=== PATIENT | male | born 1980 ===

== ENCOUNTER 2020-06-25 12:45 | Emergency (ER) | payer BC ==
[2020-06-25 12:56] VITALS: BP 122/82
--- NOTE | 2020-06-25 13:10 | Emergency Department Report ---
Blank Doc - Documentation Documentation: 39-year-old male that presents with chest pain with sob and abdominal pain with n/v. EKG shows A-fib. Denies any HX of A-fib. This initial assessment/diagnostic orders/clinical plan/treatment(s) is/are subject to change based on patient's health status, clinical progression and re- assessment by fellow clinical providers in the ED. Further treatment and workup at subsequent clinical providers discretion. Patient/guardians urged not to elope from the ED as their condition may be serious if not clinically assessed and managed. Initial orders include: 1- Patient sent to [facility] for further evaluation and treatment 2- cardiac workup
--- NOTE | 2020-06-25 13:30 | XRay Report ---
CHEST 2 VIEWS INDICATION / CLINICAL INFORMATION: Chest Pain. FINDINGS: SUPPORT DEVICES: None. HEART / MEDIASTINUM: No significant abnormality. LUNGS / PLEURA: No significant pulmonary or pleural abnormality. No pneumothorax. ADDITIONAL FINDINGS: No significant additional findings. IMPRESSION: 1. No acute findings. Signer Name: Juan Johnson MD Signed: 06/25/2020 1:26 PM Workstation Name: [id number]
[2020-06-25 14:35] LABS: Basophils % (Auto) 0.6 % (0.0-1.8); Eosinophils # (Auto) 0.1 K/mm3 (0.0-0.4); Eosinophils % (Auto) 1.2 % (0.0-4.3); Hematocrit 50.5 % (35.5-45.6); Hemoglobin 16.8 gm/dl (11.8-15.2); Lymphocytes % (Auto) 37.5 % (13.4-35.0); Mean Corpuscular HGB Conc 33 % (32-34); Mean Corpuscular Volume 97 fl (84-94); Monocytes # (Auto) 0.5 K/mm3 (0.0-0.8); Monocytes % (Auto) 6.2 % (0.0-7.3); Platelet Count 347 K/mm3 (140-440); Red Blood Count 5.21 M/mm3 (3.65-5.03); Red Cell Distribution Width 14.2 % (13.2-15.2)
[2020-06-25 14:38] LABS: Alanine Aminotransferase 37 units/L (7-56); Albumin 5.1 g/dL (3.9-5); BUN/Creatinine Ratio 16; Blood Urea Nitrogen 21 mg/dL (9-20); Calcium 10.6 mg/dL (8.4-10.2); Hemolysis Index 31
[2020-06-25 14:47] LABS: INR 0.89 (0.87-1.13)
[2020-06-25 14:48] LABS: Partial Thromboplastin Time 34.6 Sec. (24.2-36.6)
--- NOTE | 2020-06-25 15:26 | Emergency Department Report ---
ED General Adult HPI - General Chief complaint: Arrhythmia/Palpitations Stated complaint: RAPID HEART RATE Time Seen by Provider: 06/25/20 13:08 Source: patient Mode of arrival: Ambulatory Limitations: No Limitations - History of Present Illness Initial comments: Patient is 39 years old male with no significant past medical history. Patient presented to the ER complaining of heart racing and not feeling well. Patient stated the symptoms started approximately 1 hour after he ate breakfast outside. Patient stated that he immediately thought this is most likely from the food that he ate. Upon arrival to the ER patient stated that his symptoms completely resolved now. Patient denied any vomiting however he had one episode of diarrhea and he stated that he felt much better after that. Patient denied any fever or chills. No chest pain, shortness of breath, abdominal pain or weakness. Severity scale (0 -10): 0 - Related Data Previous Rx's Medication Instructions Recorded Last Taken Type Ondansetron [Zofran Odt] 4 mg PO Q8HR PRN #14 tab.rapdis 06/25/20 Unknown Rx Allergies Allergy/AdvReac Type Severity Reaction Status Date / Time pollen extracts Allergy Unknown Verified 06/25/20 12:53 ED Review of Systems ROS: Stated complaint: RAPID HEART RATE Other details as noted in HPI Comment: All other systems reviewed and negative Constitutional: denies: chills, fever Respiratory: denies: cough, shortness of breath, SOB with exertion, SOB at rest Cardiovascular: palpitations. denies: chest pain Gastrointestinal: denies: abdominal pain, nausea, vomiting Musculoskeletal: denies: back pain Neurological: denies: headache, weakness, numbness, paresthesias, confusion, abnormal gait ED Past Medical Hx - Past Medical History Additional medical history: HEART RACING - Surgical History Past Surgical History?: No - Medications Home Medications: Home Medications Medication Instructions Recorded Confirmed Last Taken Type Ondansetron [Zofran Odt] 4 mg PO Q8HR PRN #14 tab.rapdis 06/25/20 Unknown Rx ED Physical Exam - General Limitations: No Limitations General appearance: alert, in no apparent distress - Head Head exam: Present: atraumatic, normocephalic, normal inspection - Eye Eye exam: Present: normal appearance, PERRL - ENT ENT exam: Present: normal exam, normal orophraynx, mucous membranes moist - Neck Neck exam: Present: normal inspection, full ROM. Absent: tenderness, meningismus, lymphadenopathy, thyromegaly - Respiratory Respiratory exam: Present: normal lung sounds bilaterally - Cardiovascular Cardiovascular Exam: Present: regular rate, normal rhythm, normal heart sounds - GI/Abdominal GI/Abdominal exam: Present: soft, normal bowel sounds. Absent: distended, tenderness, guarding, rebound, rigid, organomegaly, mass, bruit, pulsatile mass, hernia - Back Exam Back exam: Present: normal inspection, full ROM. Absent: CVA tenderness (R), CVA tenderness (L) - Neurological Exam Neurological exam: Present: alert, oriented X3, CN II-XII intact, normal gait, reflexes normal. Absent: motor sensory deficit - Psychiatric Psychiatric exam: Present: normal mood - Skin Skin exam: Present: warm, intact, normal color ED Course Vital Signs 06/25/20 12:55 Temperature 98.1 F Pulse Rate 102 H Respiratory 18 Rate Blood Pressure 122/82 [Right] O2 Sat by Pulse 100 Oximetry ED Medical Decision Making - Lab Data Result diagrams: 06/25/20 13:28 06/25/20 13:28 - EKG Data -: EKG Interpreted by [facility] EKG shows normal: sinus rhythm Rate: normal - EKG Data Interpretation: no acute changes - Medical Decision Making Patient is 39 years old male with no significant past medical history. Patient presented to the ER complaining of heart racing and not feeling well. Patient stated the symptoms started approximately 1 hour after he ate breakfast outside. Patient stated that he immediately thought this is most likely from the food that he ate. Upon arrival to the ER patient stated that his symptoms completely resolved now. Patient denied any vomiting however he had one episode of diarrhea and he stated that he felt much better after that. Patient denied any fever or chills. No chest pain, shortness of breath, abdominal pain or weakness. Patient stated that he is feeling much better and he wanted to go home. EKG shows sinus rhythm. Chest x-ray is unremarkable. Labs reviewed and is unremarkable except for glucose of 67 and Accu-Chek repeat is 97. Patient advised to follow-up with his primary doctor in the next 2 to 3 days and to return to the ER if he develop any new symptoms. Critical care attestation.: If time is entered above; I have spent that time in minutes in the direct care of this critically ill patient, excluding procedure time. ED Disposition Clinical Impression: Palpitation, Hypoglycemia Disposition: DC-01 TO HOME OR SELFCARE Is pt being admited?: No Condition: Stable Instructions: Palpitations, [id number] Prescriptions: Ondansetron [Zofran Odt] 4 mg PO Q8HR PRN #14 tab.rapdis PRN Reason: Nausea And Vomiting Referrals: PRIMARY CARE,MD [Primary Care Provider] - 3-5 Days
== END 2020-06-25 17:52 | disposition home or self-care (01) ==
LOC: ED 12:45
DX: R00.2 Palpitations (principal); E16.2 Hypoglycemia, unspecified; Z79.899 Other long term (current) drug therapy; Z88.8 Allergy status to other drugs, medicaments and biological substances
CPT/HCPCS: 36415; 71046; 80053; 82962; 83690; 84484; 85025; 85610; 85730; 93005